=== PATIENT | female | born 1980 | race Caucasian/White ===

== ENCOUNTER → 2019-04-26 14:39 | Outpatient (CLI) | payer OTHER, SELFPAY ==
[2019-05-10 17:26] LABS: HPV HC, High Risk Negative (Negative)
[2019-05-14 14:32] LABS: HPV Reflexed? YES, CHARGE PATIENT
== END ==
PROVIDERS: Visit Provider Obstetrics & Gynecology
DX: Z12.4 Encounter for screening for malignant neoplasm of cervix (principal)
CPT/HCPCS: 87624; 88175; G0145

== ENCOUNTER → 2020-08-05 16:05 | Outpatient (CLI) | payer BC, SELFPAY ==
[2020-08-07 16:08] LABS: Endomysial Antibody IgA Negative (Negative)
[2020-08-07 16:33] LABS: Immunoglobulin A 93 mg/dL (87-352); t-Transglutaminase IgA <2 U/mL (0-3)
== END ==
PROVIDERS: PCP Family Medicine; Referring Provider Internal Medicine Gastroenterology; Visit Provider Internal Medicine Gastroenterology
DX: R19.7 Diarrhea, unspecified (principal)
CPT/HCPCS: 36415; 82784; 83516; 86140; 86255

== ENCOUNTER → 2021-02-05 08:43 | Outpatient (CLI) | payer OTHER, SELFPAY ==
[2020-11-06 15:25] VITALS: BMI 42.9
--- NOTE | 2021-02-05 08:45 | BI_ITS ---
MAMMOGRAPHY - BILATERAL SCREENING REASON FOR EXAM: Female, 40 years old. Routine annual screening examination. PERTINENT HISTORY: Non-contributory. TECHNIQUE: Digital bilateral breast zoe (3D mammographic acquisition) in the CC and MLO projections. 2-D mediolateral oblique (MLO) and craniocaudad (CC) views of both breasts were obtained. CAD: Full Field Digital Mammography with Computer Added Detection was performed. COMPARISON: None. Baseline examination. FINDINGS: Breast Composition: There are scattered areas of fibroglandular density. There are no dominant masses or suspicious calcifications. No other significant abnormalities are identified. BI/SCRN MAMM (CAD)W/ZOE BILAT IMPRESSION: Negative screening mammogram. Yearly followup mammogram recommended. (A) ASSESSMENT CATEGORY: BIRADS Category 1: Negative. A letter regarding these results will be sent to the patient by the facility within 30 days. Approximately 10% of breast cancers are not detected by mammography. A normal mammogram should not delay biopsy of a clinically suspicious abnormality. [id number] Electronically Signed: Murali Villalpando MD at 9:35 EDT , Service support ,
== END ==
PROVIDERS: PCP Family Medicine; Referring Provider Obstetrics & Gynecology; Visit Provider Obstetrics & Gynecology
DX: Z12.31 Encounter for screening mammogram for malignant neoplasm of breast (principal)
CPT/HCPCS: 77063; 77067

== ENCOUNTER → 2021-02-12 | Outpatient (CLI) | payer OTHER, SELFPAY | END | disposition home or self-care (01) | LOC: LABSPEC 14:34 | PROVIDERS: PCP Family Medicine; Referring Provider Physician Assistant; Visit Provider Physician Assistant | DX: L08.9 Local infection of the skin and subcutaneous tissue, unspecified (principal); N73.9 Female pelvic inflammatory disease, unspecified; Z22.322 Carrier or suspected carrier of Methicillin resistant Staphylococcus aureus | CPT/HCPCS: 87070; 87075; 87077; 87081; 87186; 87205 ==

== ENCOUNTER 2021-07-23 12:42 | Outpatient (CLI) | payer OTHER, SELFPAY ==
[2021-07-23] MEDS: 0.9% Saline Lock 10 ML Syringe IV (12:51)
[2021-07-23 12:53] VITALS: BP 136/79; PULSE 93; RESP 16; TEMP 37.2; O2SAT 98; BMI 39.4
[2021-07-23 13:42] VITALS: BP 127/85; PULSE 83; RESP 16; TEMP 36.5
[2021-07-23 14:45] VITALS: BP 122/74; PULSE 81; RESP 16; TEMP 36.6; O2SAT 97
== END 2021-07-23 14:42 | disposition home or self-care (01) ==
LOC: MS2OUT 12:42 → MS3 12:43
PROVIDERS: PCP Family Medicine; Referring Provider Nurse Practitioner Acute Care; Visit Provider Nurse Practitioner Acute Care
DX: Z23 Encounter for immunization (principal); U07.1 COVID-19
CPT/HCPCS: J7050; M0245; Q0245; A4216

== ENCOUNTER 2021-11-18 16:30 | Outpatient (CLI) | payer OTHER, SELFPAY ==
[2021-11-24 13:32] LABS: HPV APTIMA, High Risk Negative (Negative)
== END 2021-11-18 23:59 | disposition short-term general hospital (02) ==
LOC: LABSPEC 16:34
PROVIDERS: PCP Family Medicine; Referring Provider Obstetrics & Gynecology; Visit Provider Obstetrics & Gynecology
DX: Z12.4 Encounter for screening for malignant neoplasm of cervix (principal)
CPT/HCPCS: 87624; 88175; G0145

== ENCOUNTER 2021-11-24 14:23 | Outpatient (CLI) | payer OTHER, SELFPAY ==
[2021-11-24 15:18] LABS: Absolute Lymphocyte Count 4.01 X10^3/uL (0.83-4.51); Absolute Neutrophil Count 8.7 X10^3/uL (2.0-7.7); Basophil# 0.06 X10^3/uL; Basophil% 0.4 % (0-1); Eosinophil# 0.04 X10^3/uL; Eosinophils% 0.3 % (0-5); Hematocrit 45.2 % (37-47); Hemoglobin 15.1 g/dL (12.0-15.0); Lymphocyte # 4.01 X10^3/ul (0.83-4.51); Lymphocyte % 29.5 % (19-41); Mean Corp Hgb Conc 33.4 g/dL (32-36); Mean Corpuscular Hgb 29.4 pg (27.0-32.0); Mean Corpuscular Volume 87.9 fL (81-99); Mean Platelet Vol. 10.4 fl (6.2-12.0); Monocyte# 0.76 X10^3/uL; Monocyte% 5.6 % (0-10); NRBC Flagged by Analyzer 0 % (0-5); Neutrophil # 8.67 X10^3/uL (2.7-7.7); Neutrophil % 63.8 % (47-70); Platelet Count 338 K/mm3 (150-450); RBC Distribution Width CV 13.3 % (11.6-14.6); RBC Distribution Width SD 43.1 fl (35.1-43.9); Red Blood Count 5.14 M/mm3 (4.2-5.4); White Blood Count 13.6 K/mm3 (4.4-11.0)
[2021-11-24 15:46] LABS: Erythrocyte Sedimentation Rate 33 mm/hr (0-30)
[2021-11-24 16:04] LABS: ALB/GLOB Ratio 0.8 RATIO (0.9-2.4); AST(SGOT) 43 U/L (15-37); Alanine Aminotransfer ALT/SGPT 86 U/L (13-56); Albumin, Serum 3.5 g/dL (3.2-5.0); Alkaline Phosphatase 67 U/L (45-117); Anion Gap 6 (5-15); BUN 20 mg/dL (7-18); BUN/Creat Ratio 22.1 RATIO (10-20); CPK Total, Creatine Kinase 39 U/L (26-192); Calcium,Total 9.5 mg/dL (8.5-10.1); Chloride 103 mmol/L (98-107); EST Glomerular Filtration Rate 72 mL/min (>60); Est Glom Filt Rate - Afr Amer 88 mL/min (>60); Globulin 4.2 g/dL (2.2-4.2); Glucose 139 mg/dL (74-106); LDH 205 U/L (84-246); Potassium 3.7 mmol/L (3.5-5.1); Protein, Total 7.7 g/dL (6.4-8.2); Sodium Level 137 mmol/L (136-145)
[2021-11-24 22:24] LABS: Hemoglobin A1c 8.2 % (3.8-5.6)
[2021-11-28 07:07] LABS: Albumin 3.6 g/dL (2.9-4.4); Alpha-1-Globulins 0.3 g/dL (0.0-0.4); Alpha-2-Globulins 1.2 g/dL (0.4-1.0); Cytoplasmic Ab (C-ANCA) <1:20 titer (Neg:<1:20); Endomysial Antibody IgA Negative (Negative); Gamma Globulin 0.8 g/dL (0.4-1.8); Immunoglobulin A 121 mg/dL (87-352); Immunoglobulin G 641 mg/dL (586-1602); Immunoglobulin M 117 mg/dL (26-217)
[2021-11-28 17:59] LABS: Immunoglobulin E 30 IU/mL (6-495); Perinuclear Ab (P-ANCA) <1:20 titer (Neg:<1:20); t-Transglutaminase IgA <2 U/mL (0-3)
[2021-12-01 18:08] LABS: Anti-Centromere B Ab <0.2 AI (0.0-0.9); Anti-Chromatin <0.2 AI (0.0-0.9); Anti-Jo <0.2 AI (0.0-0.9); Anti-Scleroderma-70 AB <0.2 AI (0.0-0.9); Beef <0.10 kU/L (Class 0); Corn <0.10 kU/L (Class 0); Egg, Whole <0.10 kU/L (Class 0); Milk (Cow) <0.10 kU/L (Class 0); Peanut <0.10 kU/L (Class 0); Pork <0.10 kU/L (Class 0); RNP Ab <0.2 AI (0.0-0.9); SJOGREN'S Anti-SS-A test < 0.2 AI (0.0-0.9); SJOGREN'S Anti-SS-B test < 0.2 AI (0.0-0.9); Smith Ab <0.2 AI (0.0-0.9); Soybean <0.10 kU/L (Class 0); Wheat <0.10 kU/L (Class 0)
[2021-12-02 16:54] LABS: Anti-dsDNA Ab <1 IU/mL (0-9); Chocolate <0.10 kU/L (Class 0)
== END 2021-11-24 23:59 | disposition short-term general hospital (02) ==
LOC: LAB 14:24
PROVIDERS: PCP Family Medicine; Visit Provider Internal Medicine Gastroenterology
DX: R19.7 Diarrhea, unspecified (principal)
CPT/HCPCS: 36415; 80053; 82550; 82784; 82785; 83036; 83516; 83615; 84165; 85025; 85652; 86003; 86005; 86140; 86225; 86235; 86255; 86256; 86334

== ENCOUNTER 2021-11-25 16:15 | Outpatient (CLI) | payer OTHER, SELFPAY ==
[2021-11-25 17:41] LABS: Thyroid Stim Hormone (TSH) 2.19 uIU/mL (0.358-3.74)
[2021-11-27 21:44] LABS: Anti-Mitochondrial AB <20.0 Units (0.0-20.0)
[2021-11-28 07:07] LABS: Angiotensin Convert Enzyme 39 U/L (14-82); Ceruloplasmin 31.8 mg/dL (19.0-39.0); HEPATITIS B SURFACE AG Negative (Negative); Hepatitis A IgM Antibody Negative (Negative); Hepatitis B Core AB IgM Negative (Negative)
[2021-11-28 17:58] LABS: Anti-Smooth Muscle ABS 5 Units (0-19); Copper, Serum or Plasma 136 ug/dL (80-158); Hep C Antibodies <0.1 s/co ratio (0.0-0.9)
== END 2021-11-25 23:59 | disposition short-term general hospital (02) ==
LOC: LAB 16:17
PROVIDERS: PCP Family Medicine; Referring Provider Internal Medicine Gastroenterology; Visit Provider Internal Medicine Gastroenterology
DX: R74.01 Elevation of levels of liver transaminase levels (principal); R19.7 Diarrhea, unspecified
CPT/HCPCS: 36415; 80074; 82164; 82390; 82525; 83516; 84443

== ENCOUNTER 2021-12-02 07:57 | Outpatient (CLI) | payer OTHER, SELFPAY ==
--- NOTE | 2021-12-02 08:01 | US_ITS ---
STUDY: ABDOMINAL ULTRASOUND - RIGHT UPPER QUADRANT REASON FOR VISIT: Female, 41 years old elevated LFT''s TECHNIQUE: Ultrasound evaluation of the right upper quadrant was performed with real-time and static bassett-scale imaging. TECHNICAL QUALITY: Adequate. COMPARISON: None. FINDINGS: Liver: The liver is enlarged and measures 20 cm. There is increased echogenicity consistent with fatty infiltration. Focal fatty sparing is seen in the region of the gallbladder fossa. The bile ducts are within normal limits. There is hepatic color flow. The direction of portal flow is hepatopetal. There is no demonstrated mass lesion. Gallbladder: Normal distended gallbladder. The gallbladder wall measures 2.1 mm. There is a negative sonographic Jhaveri''s sign. There is no pericholecystic fluid. There are no gallstones. Common Bile Duct (C.B.D.): The common bile duct measures 3.6 mm. Pancreas: Normal size of the head, body and tail of the pancreas. There is normal echogenicity of the pancreas. There is no demonstrated pancreatic mass or cyst. Right Kidney: Normal size of the right kidney. The right kidney measures 11.6 cm x 5.8 cm x 4.1 cm. Normal renal cortex. The right cortex measures 1.5 cm. There is no demonstrated renal mass or cyst. There is no right hydronephrosis. US/Liver IMPRESSION: Hepatomegaly. Fatty infiltration of the liver. Electronically Signed: Murali Villalpando MD at 9:02 EST ,
--- NOTE | 2021-12-02 08:01 | US_ITS ---
STUDY: ABDOMINAL ULTRASOUND - ELASTOGRAPHY REASON FOR VISIT: Female, 41 years old. SIDHU TECHNIQUE: Liver stiffness measurements were obtained on a Next Gen Illumination RS 85 ultrasound machine using a CA 1-7 probe following the SRU guidelines. 3 measurements were obtained using a 2-D-SWE method. The IQR/M was 19% suggesting a quality data set. TECHNICAL QUALITY: Adequate. COMPARISON: None. FINDINGS: Liver: There is no demonstrated mass lesion. Median liver stiffness measured 5.8 kPa. US/Elastography Parenchyma/Organ IMPRESSION: Liver stiffness measures 5.8 kPa compatible with F2 Metavir score. Electronically Signed: Murali Villalpando MD at 9:01 EST ,
== END 2021-12-02 23:59 | disposition short-term general hospital (02) ==
LOC: US 07:59
PROVIDERS: PCP Family Medicine; Referring Provider Internal Medicine Gastroenterology; Visit Provider Internal Medicine Gastroenterology
DX: K75.81 Nonalcoholic steatohepatitis (NASH) (principal); R74.01 Elevation of levels of liver transaminase levels
CPT/HCPCS: 76705; 76981

== ENCOUNTER 2021-12-10 10:29 | Outpatient (CLI) | payer OTHER, SELFPAY ==
--- NOTE | 2021-12-10 10:31 | NM_ITS ---
CLINICAL: 41-year-old female with reported history of abdominal pain. SEMI-SOLID PHASE 99m Tc SULFUR COLLOID GASTRIC EMPTYING STUDY COMPARISON: None available FINDINGS: The patient was administered 1.0 mCi of 99m Tc sulfur colloid mixed with oatmeal and consumed per os. Image acquisitions in the anterior-posterior projections for a total of 60 minutes. There is prompt visualization of the stomach. There is no gastroesophageal reflux identified. First order kinetics are maintained throughout the duration of the acquisitions. The T ? linear fit was calculated to be 87.11 minutes, (Normal: 12-56 minutes). NM/Gastric Emptying Study IMPRESSION: 1. ABNORMAL 99m Tc sulfur colloid semi-solid phase (oatmeal) gastric emptying imaging examination. A. There is delayed semi-solid phase gastric emptying compared to normal controls with visualized first order kinetics throughout all components of the examination. (Deon et al, J Nucl Med Tech 38: 186, 2010). Electronically Signed: Tyree Barker DO at 20:35 EST ,
== END 2021-12-10 23:59 | disposition home or self-care (01) ==
LOC: NM 10:30
PROVIDERS: PCP Family Medicine; Referring Provider Internal Medicine Gastroenterology; Visit Provider Internal Medicine Gastroenterology
DX: R19.7 Diarrhea, unspecified (principal)
CPT/HCPCS: 78264; A9541

== ENCOUNTER 2022-01-28 06:44 | Outpatient (CLI) | payer OTHER, SELFPAY ==
[2022-01-28 07:52] LABS: Microalbumin,Random Urine 11.7 mg/L (NO RANGE EST.); Microalbumin:Creatinine Ratio 4.8 mg/g CRE (<30 mg/g CRE)
[2022-01-28 08:04] LABS: Cholesterol 225 mg/dL (200); Glucose 118 mg/dL (74-106); High Density Lipoprotein 60 mg/dL; Triglycerides 135 mg/dL; Very Low Density Lipoprotein 27 mg/dL (5-40)
== END 2022-01-28 23:59 | disposition home or self-care (01) ==
LOC: LAB 06:45
PROVIDERS: PCP Family Medicine; Referring Provider Family Medicine; Visit Provider Family Medicine
DX: E11.9 Type 2 diabetes mellitus without complications (principal)
CPT/HCPCS: 36415; 80061; 82043; 82570; 82947

== ENCOUNTER 2022-01-28 09:45 | Outpatient (RCR) | payer OTHER, SELFPAY | END 2022-01-29 23:59 | LOC: NS 09:45 | PROVIDERS: PCP Family Medicine; Referring Provider Internal Medicine Gastroenterology; Visit Provider Internal Medicine Gastroenterology | DX: Z71.3 Dietary counseling and surveillance (principal); E66.9 Obesity, unspecified; Z68.41 Body mass index [BMI] 40.0-44.9, adult | CPT/HCPCS: 97802; 97803 ==

== ENCOUNTER 2022-02-04 12:31 | Outpatient (CLI) | payer OTHER, SELFPAY ==
--- NOTE | 2022-02-04 12:33 | BI_ITS ---
MAMMOGRAPHY - BILATERAL SCREENING REASON FOR EXAM: Female, 41 years old. Routine annual screening examination. PERTINENT HISTORY: Non-contributory. TECHNIQUE: Digital bilateral breast zoe (3D mammographic acquisition) in the CC and MLO projections. 2-D mediolateral oblique (MLO) and craniocaudad (CC) views of both breasts were obtained. CAD: Full Field Digital Mammography with Computer Added Detection was performed. COMPARISON: Comparison is made with prior study dated 02/05/2021. FINDINGS: Breast Composition: There are scattered areas of fibroglandular density. There are no dominant masses or suspicious calcifications. No other significant abnormalities are identified. There has been no significant change since the prior study. BI/SCRN MAMM (CAD)W/ZOE BILAT IMPRESSION: Stable bilateral screening mammogram. Yearly follow-up mammogram recommended. (A) ASSESSMENT CATEGORY: BIRADS Category 1: Negative. A letter regarding these results will be sent to the patient by the facility within 30 days. Approximately 10% of breast cancers are not detected by mammography. A normal mammogram should not delay biopsy of a clinically suspicious abnormality. [id number] Electronically Signed: Murali Villalpando MD at 13:26 EDT ,
== END 2022-02-04 23:59 | disposition home or self-care (01) ==
LOC: OPBI 12:31
PROVIDERS: PCP Family Medicine; Visit Provider Obstetrics & Gynecology
DX: Z12.31 Encounter for screening mammogram for malignant neoplasm of breast (principal)
CPT/HCPCS: 77063; 77067

== ENCOUNTER 2022-02-18 16:31 | Outpatient (RCR) | payer OTHER, SELFPAY | END 2022-02-28 23:59 | LOC: NS 16:31 | PROVIDERS: PCP Family Medicine; Referring Provider Internal Medicine Gastroenterology; Visit Provider Internal Medicine Gastroenterology | DX: Z71.3 Dietary counseling and surveillance (principal); E66.9 Obesity, unspecified | CPT/HCPCS: 97803 ==

== ENCOUNTER 2022-03-18 16:11 | Outpatient (RCR) | payer OTHER, SELFPAY | END 2022-03-31 23:59 | LOC: NS 16:11 | PROVIDERS: PCP Family Medicine; Referring Provider Internal Medicine Gastroenterology; Visit Provider Internal Medicine Gastroenterology | DX: Z71.3 Dietary counseling and surveillance (principal); E66.9 Obesity, unspecified; Z68.39 Body mass index [BMI] 39.0-39.9, adult | CPT/HCPCS: 97803 ==

== ENCOUNTER 2022-04-22 16:26 | Outpatient (RCR) | payer OTHER, SELFPAY | END 2022-04-30 23:59 | LOC: NS 16:26 | PROVIDERS: PCP Family Medicine; Referring Provider Internal Medicine Gastroenterology; Visit Provider Internal Medicine Gastroenterology | DX: Z71.3 Dietary counseling and surveillance (principal); E66.9 Obesity, unspecified; Z68.38 Body mass index [BMI] 38.0-38.9, adult | CPT/HCPCS: 97803 ==

== ENCOUNTER 2022-05-13 16:23 | Outpatient (RCR) | payer OTHER, SELFPAY | END 2022-05-31 23:59 | LOC: NS 16:23 | PROVIDERS: PCP Family Medicine; Referring Provider Internal Medicine Gastroenterology; Visit Provider Internal Medicine Gastroenterology | DX: Z71.3 Dietary counseling and surveillance (principal); E66.9 Obesity, unspecified; Z68.39 Body mass index [BMI] 39.0-39.9, adult | CPT/HCPCS: 97803 ==

== ENCOUNTER → 2022-06-09 | Outpatient (CLI) | payer OTHER, SELFPAY ==
[2022-06-09 07:24] LABS: ALB/GLOB Ratio 0.9 RATIO (0.9-2.4); AST(SGOT) 16 U/L (15-37); Alanine Aminotransfer ALT/SGPT 23 U/L (13-56); Albumin, Serum 3.3 g/dL (3.2-5.0); Alkaline Phosphatase 49 U/L (45-117); Anion Gap 5 (5-15); BUN 16 mg/dL (7-18); BUN/Creat Ratio 18.3 RATIO (10-20); Calcium,Total 8.8 mg/dL (8.5-10.1); Chloride 106 mmol/L (98-107); Cholesterol 227 mg/dL (200); Creatinine, Serum 0.87 mg/dL (0.55-1.02); EST Glomerular Filtration Rate 75 mL/min (>60); Est Glom Filt Rate - Afr Amer 91 mL/min (>60); Globulin 3.6 g/dL (2.2-4.2); Glucose 107 mg/dL (74-106); High Density Lipoprotein 55 mg/dL; Potassium 3.9 mmol/L (3.5-5.1); Protein, Total 6.9 g/dL (6.4-8.2); Sodium Level 141 mmol/L (136-145); Triglycerides 132 mg/dL; Very Low Density Lipoprotein 26 mg/dL (5-40)
[2022-06-09 07:34] LABS: Hemoglobin A1c 6.4 % (3.8-5.6)
== END | disposition home or self-care (01) ==
LOC: LAB 06:15
PROVIDERS: PCP Family Medicine; Visit Provider Family Medicine
DX: E11.9 Type 2 diabetes mellitus without complications (principal)
CPT/HCPCS: 36415; 80053; 80061; 83036

== ENCOUNTER 2022-06-15 16:23 | Outpatient (RCR) | payer OTHER, SELFPAY | END 2022-07-01 23:59 | LOC: NS 16:23 | PROVIDERS: PCP Family Medicine; Referring Provider Internal Medicine Gastroenterology; Visit Provider Internal Medicine Gastroenterology | DX: Z71.3 Dietary counseling and surveillance (principal); E66.9 Obesity, unspecified; Z68.39 Body mass index [BMI] 39.0-39.9, adult | CPT/HCPCS: 97803 ==

== ENCOUNTER 2022-07-28 16:36 | Outpatient (RCR) | payer OTHER, SELFPAY | END 2022-07-31 23:59 | LOC: NS 16:36 | PROVIDERS: PCP Family Medicine; Referring Provider Internal Medicine Gastroenterology; Visit Provider Internal Medicine Gastroenterology | DX: Z71.3 Dietary counseling and surveillance (principal); E66.9 Obesity, unspecified; Z68.39 Body mass index [BMI] 39.0-39.9, adult | CPT/HCPCS: 97803 ==

== ENCOUNTER 2022-08-26 16:31 | Outpatient (RCR) | payer OTHER, SELFPAY | END 2022-08-31 23:59 | LOC: NS 16:31 | PROVIDERS: PCP Family Medicine; Referring Provider Internal Medicine Gastroenterology; Visit Provider Internal Medicine Gastroenterology | DX: Z71.3 Dietary counseling and surveillance (principal); E66.9 Obesity, unspecified; Z68.39 Body mass index [BMI] 39.0-39.9, adult | CPT/HCPCS: 97803 ==

== ENCOUNTER 2022-09-21 16:29 | Outpatient (RCR) | payer OTHER, SELFPAY | END 2022-09-30 23:59 | LOC: NS 16:29 | PROVIDERS: PCP Family Medicine; Referring Provider Internal Medicine Gastroenterology; Visit Provider Internal Medicine Gastroenterology | DX: Z71.3 Dietary counseling and surveillance (principal); E66.9 Obesity, unspecified; Z68.39 Body mass index [BMI] 39.0-39.9, adult | CPT/HCPCS: 97803 ==

== ENCOUNTER → 2022-12-28 | Outpatient (CLI) | payer OTHER, SELFPAY ==
[2022-12-28 17:26] LABS: Microalbumin,Random Urine 5.4 mg/L (NO RANGE EST.); Microalbumin:Creatinine Ratio 6.7 mg/g CRE (<30 mg/g CRE)
[2022-12-28 18:09] LABS: AST(SGOT) 15 U/L (15-37); Alanine Aminotransfer ALT/SGPT 25 U/L (13-56); Albumin, Serum 3.7 g/dL (3.2-5.0); Alkaline Phosphatase 50 U/L (45-117); Anion Gap 7 (5-15); BUN 19 mg/dL (7-18); BUN/Creat Ratio 23.7 RATIO (10-20); Calcium,Total 9.1 mg/dL (8.5-10.1); Chloride 105 mmol/L (98-107); Cholesterol 183 mg/dL (200); EST Glomerular Filtration Rate 83 mL/min (>60); Est Glom Filt Rate - Afr Amer 100 mL/min (>60); Globulin 3.6 g/dL (2.2-4.2); Glucose 94 mg/dL (74-106); High Density Lipoprotein 74 mg/dL; Potassium 3.7 mmol/L (3.5-5.1); Protein, Total 7.3 g/dL (6.4-8.2); Sodium Level 140 mmol/L (136-145); Triglycerides 81 mg/dL; Very Low Density Lipoprotein 16 mg/dL (5-40)
== END | disposition home or self-care (01) ==
LOC: LAB 16:21
PROVIDERS: PCP Family Medicine; Referring Provider Family Medicine; Visit Provider Family Medicine
DX: E11.9 Type 2 diabetes mellitus without complications (principal)
CPT/HCPCS: 36415; 80053; 80061; 82043; 82570; 83036

== ENCOUNTER → 2023-01-04 | Outpatient (CLI) | payer OTHER, SELFPAY ==
--- NOTE | 2023-01-04 15:45 | RAD_ITS ---
STUDY: X-RAY - PELVIS AND BILATERAL HIPS REASON FOR EXAM: Female, 42 years old. Pain. TECHNIQUE: AP view of the pelvis.? 2 views of the right hip, and 2 views of the left hip were obtained. COMPARISON: None. FINDINGS: There is a non-specific bowel gas pattern. Normal visualized soft tissue structures. !!! Mild arthrosis of both sacroiliac joints. Normal bilateral superior and inferior pubic rami. Mild arthrosis of the symphysis pubis. Normal bilateral ischial tuberosities. Moderate arthrosis of both hips with osteophytes. RAD/Hips B/L min 2 views w/ Pelvis IMPRESSION: Mild arthrosis at the symphysis pubis and bilateral sacroiliac joints. Moderate arthrosis of both hips. Electronically Signed: Matthieu Song, at 13:06 EST ,
[2023-01-04 17:39] LABS: Estradiol 143.4 pg/mL; Follicle Stimulating Hormone 5.6 mIU/mL; Thyroid Stim Hormone (TSH) 2.36 uIU/mL (0.358-3.74)
[2023-01-04 17:41] LABS: Progesterone Level 0.26 ng/mL (See Comment)
[2023-01-06 15:15] LABS: Sex Hormone-binding Globulin 78.3 nmol/L (24.6-122.0)
== END | disposition home or self-care (01) ==
LOC: LAB 15:34
PROVIDERS: PCP Family Medicine; Visit Provider Family Medicine
DX: N95.1 Menopausal and female climacteric states (principal); M76.31 Iliotibial band syndrome, right leg; M76.32 Iliotibial band syndrome, left leg
CPT/HCPCS: 36415; 73521; 82670; 83001; 84144; 84270; 84403; 84443

== ENCOUNTER 2023-01-14 06:42 | Day surgery (SDC) | payer OTHER, SELFPAY ==
--- NOTE | 2023-01-06 12:50 | PCM.HP.BLA ---
History and Physical History and Physical [facility] Patient Name: Marjan Garcia : 1980 From:? JAIRO TSANG PA-C? DATE OF SURGERY:? 01/14/2023 SCHEDULED PROCEDURE:? Endoscopic bilateral carpal tunnel release with possible open HISTORY OF PRESENT ILLNESS: Preoperative history and physical exam was performed on January 06, 2023.? This is a 42-year-old female who is been having ongoing numbness and tingling for the past 1-1/2 years.? There is never been any trauma or injury.? She denies any current neck pain.? Numbness and tingling is associated in bilateral thumbs, index fingers, middle fingers and medial aspect of both ring fingers.? Pain does occasionally awaken her at nighttime.? Patient is right-hand dominant.? She does report numbness and tingling has been significantly affecting her activities of daily living and work duties.? She denies any recent fevers, chills, recent infections.? She has underlying type 2 diabetes mellitus.? She currently denies chest pain, shortness of breath.? After failing conservative measures and discussing treatment options with Dr. Abdiel Bernard, the patient does wish to proceed with a bilateral endoscopic carpal tunnel release with possible open. REVIEW OF SYSTEMS: ROS: Const: Denies change in appetite, fever and weight change. CV: Denies chest pain, heart murmur and irregular heartbeat. Resp: Denies cough, pneumonia, shortness of breath, tuberculosis and wheezing. GI: Denies constipation, diarrhea, heartburn, nausea, rectal itching, bloody stools and vomiting. : Denies incontinence. Musculo: Denies leg swelling, pain, trouble walking and weakness. Skin: Denies Raynaud's, history of shingles and tattoo. Neuro: Reports numbness/tingling but denies ambulatory dysfunction, dizziness and tremor. Psych: Denies anxiety, insomnia and stress. Giovani/Lymph: Denies anemia, bleeding/bruising tendency and past transfusion. Reviewed and updated. PAST MEDICAL HISTORY: Advance Care Plan: No Advance Directives Effective Date: 03/17/2021 PMH: Medical Problems: Diabetes Accidents: None Surgical Hx: Section - 2002, 2004, 2006 Tubal Ligation - 2006 [place] - (2000) ? Anesthesia Complications: None Assistive Devices: None Reviewed and updated. 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 Personal Habits:? Cigarette Use: Never Smoked Cigarettes.Smokeless Tobacco: Never Used Smokeless Tobacco.E-Cigarette Use: Never used.Alcohol: Occasionally.Drug Use: Denies Use.Enjoy Exercising: Exercises 1-3 X/Week. Reviewed, no changes. VITALS: Ht: 64.2 Wt: 228lb Wt k.421 BMI: 38.9 BP: 122/68 Pulse: 83 Resp: 18 T: 97.6 T: 36.4C Pain Level: 0 O2SatR: 100 ALLERGIES: No Known Drug Allergy? MEDICATIONS: Vitamin C? once daily, Vitamin D3 Super Strength 50 mcg (2000 Ut) two tabs daily PO, Multivitamin? take one(1) tablet daily., Rosuvastatin Calcium 5 mg 1 by mouth every day, Actos 15 mg one tab PO bid, [place] 3 1000 mg two tabs one daily PO, Vitamin E 180 MG (400 Unit) three tabs once daily PO PRE-OP EXAM:? General appearance:NORMAL? ? ? Other: Eyes: Conjunctivae and lids: NORMAL? Pupils: ERR Ears, Nose, Mouth, and Throat: NORMAL? Other: Inspection of lips, teeth and gums: NORMAL? ?Other: Neck: Examination of neck: no masses noted. Respiratory: Assessment of respiratory effort: NORMAL? ?Other: ?Auscultation of lungs: clear to auscultation no wheezes, rhonchi or rales. Cardiovascular:? Auscultation of heart: regular rate and rhythm, no murmurs, gallops or rubs. PHYSICAL EXAMINATION: On exam of bilateral hands they are without erythema or signs of infection.? No atrophy appreciated.? Patient has full composite fist full extension of fingers.? She has positive carpal compression exam bilaterally, positive Phalen's bilaterally, positive Tinel's at the wrist bilaterally.? Sensation intact to light touch axillary, Radial, median, ulnar nerve distribution however diminished in the median nerve distribution. IMAGING STUDIES: Previous x-rays of bilateral wrist revealed no acute findings for fracture or dislocation with no degenerative changes. IMPRESSION: 1.? Bilateral carpal tunnel syndrome 2.? Type 2 diabetes mellitus PLAN: Dr. Abdiel Bernard did discuss and review with the patient all treatment options including surgical versus nonsurgical options.? Patient does wish to proceed with the above-stated procedure.? Potential risks, benefits, and complications of the procedure were discussed in detail including but not limited to , infection, nerve and blood vessel damage, persistent pain, numbness, tingling, paresthesias, blood clot, pulmonary embolism, and requirement for possible further surgery.? The patient expressed full understanding and has no further questions for the doctor.? Patient does agree to proceed with the above-stated procedure and has signed the surgery consent form. This dictation was created using voice recognition software. Phonetic and/or grammatical errors may exist. ___? I have re-examined the patient.? There are no clinical changes since date of exam. ___? See progress notes for changes. ___? Dictated on admission Date: ? ? ?Time: Signature:
[2023-01-14] VITALS (7 sets, daily range): BP systolic 105–115; BP diastolic 57–70; PULSE 62–85; RESP 16; TEMP 36.2–37; O2SAT 94–100; BMI 38.3
[2023-01-14] MEDS: Lactated Ringers 1,000 ML 15 ML IV (07:33)
[2023-01-14] MEDS: Cefazolin 2 GM in 0.9% Normal Saline 100 ML IV (08:02)
[2023-01-14] MEDS: Ropivacaine 0.5% 30 ML Vial (08:24)
[2023-01-14 08:25] LABS: Bedside Glucose 102 mg/dL (74-106)
--- NOTE | 2023-01-14 09:02 | PCM.OPRPT ---
Report of Operation Date of Procedure: 01/14/23 Description of Surgical Findings:: Preoperative diagnosis: Bilateral carpal Tunnel Syndrome Postoperative diagnosis: Bilateral carpal Tunnel Syndrome Procedure: Bilateral endoscopic Carpal Tunnel Release Surgeon: Robin Bernard DO Anesthesia: General with LMA Pest Locator: Karen Mansfield CRNA Complications: None apparent Drains: None Estimated blood loss: 2 cc Urinary output: None measured IV fluids: Per anesthesia record Specimens: None Surgical implants: None Surgical indications: This is a 42 female seen in the outpatient setting diagnosed with bilateral carpal tunnel syndrome. The patient failed nonoperative management in the form of bracing, anti-inflammatory medications, activity modification. Operative intervention in form of endoscopic possible open carpal tunnel release was offered to bilateral hands. The risks, benefits, alternatives to procedure were reviewed with patient at length in the outpatient setting and he agreed to proceed. Risks included but were not limited to bleeding, infection, loss of life or limb, risk of anesthesia, incomplete release, neurovascular injury, persistent pain, need for additional surgery, stiffness, loss of hand function. Patient expressed understanding wish to proceed with surgery. Informed consent obtained in the office. Description of procedure: Patient was seen in preoperative holding area. Patient was identified by name, medical record number, date of . The operative extremities were marked with a surgical marker. We confirmed informed consent with the patient and all questions were answered to the patient's satisfaction. At time of her procedure, patient was brought to the operative suite and positioned supine a standard operating table. All bony prominences were well-padded. General anesthesia was induced and endotracheal tube placed. Bilateral upper extremities were then prepped for surgery by first applying a well-padded pneumatic tourniquet to the upper arms. We spun the bed approximately 45 degrees. 2 g Ancef was administered prior to incision by anesthesia staff. We performed a timeout at this point confirming side, site, and operation to be performed. No concerns voiced and elected to proceed. I began surgery on the right side, as this was the more symptomatic side. I first marked a transverse incision between the FCR and FCU tendons as the patient did not have a palmaris longus tendon In the proximal wrist crease approximately 1-1/2 cm in length. Skin was sharply incised with 15 blade scalpel. Superficial veins were cauterized with bipolar cautery. The fatty layer was dissected through bluntly until the antebrachial fascia was encountered. The antebrachial fascia were split in line with the fibers as well as the incision with the Littler scissors. I then placed a skin hook around the antebrachial fascia distally. I open the approximately 1 cm longitudinally of the antebrachial fascia. I then sequentially dilated within the carpal tunnel utilizing Arthrex supplied dilators. I then utilized there synovial elevator to debride the undersurface of the transverse carpal ligament free from synovium. I then removed the elevator and inserted the centerline endoscopic carpal tunnel release system. The transverse carpal ligament was well visualized and free from underlying synovium. I identified its distal aspect by ballottement of the skin and perivascular fat was visualized. I then carefully deployed the scalpel from the sheath and, in retrograde fashion, sequentially released the transverse carpal ligament longitudinally. No aberrancies of the median nerve were apparent. Complete release was confirmed with Littler scissors acting as a probe. The tourniquet was then deflated. Hemostasis was excellent. A field block was administered with 10 cc 0.5% plain ropivacaine. Skin was closed with a single horizontal mattress suture of 4-0 nylon suture. Sterile compression dressing was then applied. I then turned my attention to the left side. I first marked a transverse incision between the FCR and FCU tendons as the patient did not have a palmaris longus tendon In the proximal wrist crease approximately 1-1/2 cm in lengthSkin was sharply incised with 15 blade scalpel. Superficial veins were cauterized with bipolar cautery. The fatty layer was dissected through bluntly. Muscle belly was encountered which appeared to be an anomalous muscle, likely a palmaris longus variant. I cauterized the muscle belly through our dissection tract. This then identified the antebrachial fascia was encountered. The antebrachial fascia were split in line with the fibers as well as the incision with the Littler scissors. I then placed a skin hook around the antebrachial fascia distally. I opened the proximal 1 cm longitudinally of the antebrachial fascia. I then sequentially dilated within the carpal tunnel utilizing Arthrex supplied dilators. I then utilized there synovial elevator to debride the undersurface of the transverse carpal ligament free from synovium. I then removed the elevator and inserted the centerline endoscopic carpal tunnel release system. The transverse carpal ligament was well visualized and free from underlying synovium. I identified its distal aspect by blotting the skin and perivascular fat was visualized. I then carefully deployed the scalpel from the sheath and, in retrograde fashion, sequentially released the transverse carpal ligament longitudinally. No aberrancies of the median nerve were apparent. Complete release was confirmed with Littler scissors acting as a probe. The tourniquet was then deflated. Hemostasis was excellent. A field block was administered with 10 cc 0.5% plain ropivacaine. Skin was closed with interrupted horizontal mattress sutures of 4-0 nylon suture. Sterile compression dressing was then applied. Patient tolerated procedure well without apparent complication.she was safely extubated in the operative suite. She was transferred to PACU in stable condition. Post Operative Plan: Weightbearing: Weightbearing as tolerated bilateral upper extremities Antibiotics: Ancef 2 g x 1 dose preoperatively DVT Prophylaxis: None indicated Green: None Dressing: Okay to remove on postoperative day #2, shower. Apply Band-Aid X-Rays: None Pain Medication: [place] rx sent Follow-up: 2 weeks post-operatively with me in the office
--- NOTE | 2023-01-14 09:10 | PCM.DC ---
Discharge Instructions Follow Up Care Test Results: Test results from this visit will be discussed in further detail at your follow-up appointment, if applicable. Discharge Plan Admission Attending Provider: Robin Bernard Primary Care Provider: Skylar Roman Discharge Orders/Prescriptions Prescriptions: No Action multivitamin Tablet 1 tab PO DAILY cholecalciferol (vitamin D3) 50 mcg (2,000 unit) capsule 50 mcg PO DAILY ascorbic acid (vitamin C) [Vitamin C] 500 mg Tablet 1,000 mg PO DAILY vitamin E 800 unit Capsule 800 unit PO DAILY [place] 3 Natural Fish Oil Conc Capsule 2,000 mg PO DAILY rosuvastatin 5 mg tablet 5 mg PO QHS Label Comments: TAKE 1 TABLET BY MOUTHCONCE DAILY AT BEDTIME pioglitazone 30 mg tablet See Rx Instructions .ROUTE .COMPLEX Qty: 30 2RF Dose Instruction: TAKE 1 TABLET BY MOUTH ONCE DAILY Rx Instructions: TAKE 1 TABLET BY MOUTH ONCE DAILY Referrals / Follow Up: Skylar Roman MD [Primary Care Provider] - Disposition Disposition (needs filled in before D/C Order can be placed): Home, Self Care
== END 2023-01-14 10:39 | disposition home or self-care (01) ==
LOC: SDC 06:44 → AC 06:44
PROVIDERS: PCP Family Medicine; Referring Provider Student in an Organized Health Care Education/Training Program; Visit Provider Student in an Organized Health Care Education/Training Program
PROC: (CPT 29848; principal; 2023-01-14 08:05)
DX: G56.03 Carpal tunnel syndrome, bilateral upper limbs (principal); E11.9 Type 2 diabetes mellitus without complications; E78.00 Pure hypercholesterolemia, unspecified; E66.9 Obesity, unspecified; Z79.84 Long term (current) use of oral hypoglycemic drugs; Z79.899 Other long term (current) drug therapy
CPT/HCPCS: 29848; 01810; 82962; J7120; J2405

== ENCOUNTER → 2023-02-12 | Outpatient (CLI) | payer OTHER, SELFPAY ==
--- NOTE | 2023-02-12 08:05 | US_ITS ---
STUDY: ABDOMINAL ULTRASOUND - ELASTOGRAPHY REASON FOR VISIT: Female, 42 years old. Abnormal liver enzymes. TECHNIQUE: Liver stiffness measurements were obtained on a [employer] RS 85 ultrasound machine using a CA 1-7 probe following the SRU guidelines. 3 measurements were obtained using a 2-D-SWE method. TheIQR/M was 23% suggesting a quality data set. TECHNICAL QUALITY: Adequate. COMPARISON: Comparison is made with prior study done earlier today. FINDINGS: Liver: Hepatomegaly. Fatty infiltration of the liver. Median liver stiffness measured 10.3 kPa. Abdomen: There is no demonstrated mass lesion. US/ABD Limited w/ Elastography IMPRESSION: Liver stiffness measures 10.3 kPa compatible with F2-F3 (Mild to moderate liver fibrosis) Metavir score. Electronically Signed: Murali Villalpando MD at 12:35 EDT ,
--- NOTE | 2023-02-12 09:03 | BI_ITS ---
MAMMOGRAPHY - BILATERAL SCREENING 3-D TOMOSYNTHESIS REASON FOR EXAM: Female, 42 years old. Routine screening PERTINENT HISTORY: No significant family history. TECHNIQUE: 2-D mammograms and 3-D Tomosynthesis of the breast (s) were performed. CAD was performed. COMPARISON: 02/04/2022 FINDINGS: The breast composition is composed of scattered fibroglandular density. Scattered benign calcifications are seen. No dense spiculated masses or suspicious microcalcifications are identified. No architectural distortion is identified. There is no skin thickening or retraction. There has been no significant change since the prior study. BI/SCRN MAMM (CAD)W/ZOE BILAT IMPRESSION: No mammographic signs of malignancy. Routine yearly mammograms recommended. ASSESSMENT CATEGORY: BIRADS Category 1: Negative. A letter regarding these results will be sent to the patient by the facility within 30 days. FOLLOW UP RECOMMENDATION: Yearly follow up mammogram recommended. (A) Approximately 10% of breast cancers are not detected by mammography. A normal mammogram should not delay biopsy of a clinically suspicious abnormality. Electronically Signed: Erik Adler MD at 10:20 EDT ,
== END | disposition home or self-care (01) ==
LOC: US 08:00
PROVIDERS: PCP Family Medicine; Referring Provider Internal Medicine Gastroenterology; Visit Provider Internal Medicine Gastroenterology
DX: Z12.31 Encounter for screening mammogram for malignant neoplasm of breast (principal)
CPT/HCPCS: 76705; 76981; 77063; 77067

== ENCOUNTER → 2023-03-08 | Outpatient (CLI) | payer OTHER, SELFPAY ==
--- NOTE | 2023-03-08 07:45 | US_ITS ---
STUDY: ABDOMINAL ULTRASOUND - ELASTOGRAPHY REASON FOR VISIT: Female, 43 years old. SIDHU TECHNIQUE: Liver stiffness measurements were obtained on a [employer] RS 85 ultrasound machine using a CA 1-7 probe following the SRU guidelines. 3 measurements were obtained using a 2-D-SWE method. TheIQR/M was 27 % suggesting a quality data set. TECHNICAL QUALITY: Adequate. COMPARISON: Comparison is made with prior study dated December 02, 2021 FINDINGS: Liver: There is no demonstrated mass lesion. Median liver stiffness measured 8.8 kPa. Abdomen: There is no demonstrated mass lesion. US/Elastography Parenchyma/Organ IMPRESSION: Liver stiffness measures 8.8 kPa compatible with F2-F3 (Mild to moderate liver fibrosis) Metavir score. Electronically Signed: Murali Villalpando MD at 12:52 EDT ,
== END | disposition home or self-care (01) ==
LOC: US 07:42
PROVIDERS: PCP Family Medicine; Referring Provider Internal Medicine Gastroenterology; Visit Provider Internal Medicine Gastroenterology
DX: K75.81 Nonalcoholic steatohepatitis (NASH) (principal)
CPT/HCPCS: 76981

== ENCOUNTER → 2023-03-12 | Outpatient (CLI) | payer OTHER, SELFPAY ==
[2023-03-21 11:07] LABS: HPV APTIMA, High Risk Negative (Negative)
== END | disposition home or self-care (01) ==
LOC: US 14:12
PROVIDERS: PCP Family Medicine; Visit Provider Obstetrics & Gynecology
DX: Z12.4 Encounter for screening for malignant neoplasm of cervix (principal)
CPT/HCPCS: 87624; 88175; G0145

== ENCOUNTER → 2023-03-25 | Outpatient (CLI) | payer OTHER, SELFPAY ==
--- NOTE | 2023-03-25 16:12 | US_ITS ---
STUDY: ULTRASOUND OF THE FEMALE PELVIS - COMPLETE REASON FOR EXAM: Female, 43 years old. abnormal uterine bleeding LMP: 03/23/2023 TECHNIQUE: Transabdominal and Transvaginal TECHNICAL QUALITY: Adequate. COMPARISON: None. FINDINGS: The uterus is anteverted and is in a midline position. The uterus measures 9.6 x 6.5 x 4.2 cm. Normal uterine cervix. The endometrium measures 10 mm in thickness, and is hyperechoic. There is no demonstrated endometrial mass. 2 separate uterine fibroids, larger measures 1.2 cm I.U.D. - The patient does not have an I.U.D. The right ovary is visualized. The right ovary measures 4.3 x 2.6 x 2.1 cm. There is no right ovarian cyst or ovarian mass. There is no visualized right adnexal mass or complex lesion. There is normal arterial and normal venous vascularity. The left ovary is visualized. The left ovary measures 4.8 x 4.2 x 3.2 cm. There is a complex 2.3 x 2.9 x 2.7 cm cyst.. There is normal arterial and normal venous vascularity. There is minimal fluid in the cul-de-sac. The bladder is sonographically normal US/Pelvic w/ Transvaginal IMPRESSION: Complex 2.3 x 2.9 x 2.7 cm left adnexal cyst, follow-up ultrasound in 4-6 weeks recommended to assess stability or resolution Small uterine fibroids Minimal free fluid in the cul-de-sac is likely physiologic Electronically Signed: Erik Adler MD at 21:16 EDT ,
== END | disposition home or self-care (01) ==
LOC: US 16:11
PROVIDERS: PCP Family Medicine; Referring Provider Obstetrics & Gynecology; Visit Provider Obstetrics & Gynecology
DX: N93.9 Abnormal uterine and vaginal bleeding, unspecified (principal)
CPT/HCPCS: 76830; 76856

== ENCOUNTER 2023-03-31 17:00 | Outpatient (RCR) | payer OTHER, SELFPAY ==
--- NOTE | 2023-01-14 07:43 | HP.PTEVAL ---
Patient's Visit Information ARA URRUTIA is a 42 year old F referred to Physical Therapy by Dr. Skylar Roman MD with a diagnosis of B IT band syndrome. Date of Evaluation: 01/13/23 Physical Therapist: Chucky Levy DPT - Visit Plan Frequency: 2x /Week Duration: 4 Weeks Plan: Start with pigeon stretch, lunge with hip ER stretching, TFL stretching. Add in glute med and max strengthening in non painful movements - Subjective Pt. is here today for her initial evaluation with diagnosis of B It band syndrome. Pt. reports having pain for ~1.5 years. No mech of injury. Pt. reports having increased pain with prolonged standing, walking, but also has pain with some of her exercises at the gym including: leg press and hip abduction exercises. She reports no issues with the elliptical. Pt. did have xrays showing some mild-moderate arthrosis of B hips. Her pain tends to be more lateral near greater trochanter. Pt. has done some stretching and has done foam rolling, both with minimal change in her symptoms. She reports having some pain also with lying in her sides, but not as much. Pt. denies N/T, but does have some chronic low back pain as well. 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 Pt. reports having increased stiffness in morning as well. Pt. is hopeful to reduce symptoms in order to tolerate all of her exercise and work routine. - Pain R hip Pain Intensity (Out of 10): 4 Pain Intensity Range: 3, 8 L hip Pain Intensity (Out of 10): 3 Pain Intensity Range: 2, 8 - Objective POSTURE: Pt. has fairly decent posture in stance. No major lateral shift noted. Slight anterior pelvic tilt noted. PALPATION: Pt. has no pain at B hip flexors, her pain is mostly over B greater trochanters. Pt. has some pain along IT band inferior to greater trochanters, but not as much. NEURO: normal bilaterally. ROM: L hip: flexion 110deg mild increase NW, abd 45deg NE, ER 60deg mild increase nW, IR 35deg mild groin pain. R hip: flexion 120deg mild increase NW, abd 45deg NE, ER 60deg mild increase NW, IR 35deg mild increase groin pain. Pt. has pretty good HS length bilaterally. Pt. has mild tightness in B hip flexors, tightness noted in B IT bands. + obers test for tightness. LUMBAR SPINE: flexion min loss NE, ext min loss tightness reported, SB min loss NE, rotation nil loss NE bilat. MMT: Pt. has good strength throughout BLEs, 5/5 throughout, except hip abd 5-/5, hip ext 5-/5, core strength fair-. GAIT: Pt. has increase in lateral hip sway, but no Trendelenburg pattern noted. STAIRS: fairly normal. - Special Tests L/S Slump test left side: Negative L/S Slump test right side: Negative L/S Left Straight Leg Raise: Negative L/S Right Straight Leg Raise: Negative Lumbar Standing: Flexion - Mechanical Response: No effect Lumbar Standing: Flexion - Symptoms During Testing: Produces Lumbar Standing: Flexion - Symptoms After Testing: No effect Lumbar Standing: Extension - Mechanical Response: No effect Lumbar Standing: Extension - Symptoms During Testing: No effect Lumbar Standing: Extension - Symptoms After Testing: No effect Lumbar Standing: Right Side Glides - Mechanical Response: No effect Lumbar Standing: Right Side [place] - Symptoms During Testing: No effect Lumbar Standing: Right Side [place] - Symptoms After Testing: No effect Lumbar Standing: Left Side [place] - Mechanical Response: No effect Lumbar Standing: Left Side [place] - Symptoms During Testing: No effect Lumbar Standing: Left Side [place] - Symptoms After Testing: No effect R Hip Scour: Negative R Hip HILARIA - Intraarticular Pathology: Negative R Hip FADDIR - Labrum: Negative R Hip Leslie - IT Band: Positive Comment: obers + for tightness L Hip Scour: Negative L Hip HILARIA - Intraarticular Pathology: Negative L Hip FADDIR - Labrum: Negative L Hip Leslie - IT Band: Positive Comment: obers + for tightness - Balance/Special Test Scores Lower Extremity Functional Score: 64 - Goals Goal 1:: LTG: Pt. to be I with HEP. Goal Time Frame: 4-6 Weeks Goal 2:: STG: Pt. to sleep throughout the night without increase in symptoms. Goal Time Frame: 2-4 Weeks Goal 3:: LTG: Pt. to have increased TLF length noted by negative obers test. Goal Time Frame: 4-6 Weeks Goal 4:: LTG: Pt. to have increased B glute med and max strength to 5/5 throughout. Goal Time Frame: 4-6 Weeks Goal 5:: LTG: Pt. to complete all work out routines without increase in B hip pain. Goal Time Frame: 4-6 Weeks - Rehabilitation Potential Physical Therapy Diagnosis: Pt. has signs and symptoms consistent with B IT band syndrome. Pt. has marked tightness in B hips, especially with TFL and with hip external rotators. Pt. would benefit from TFL stretching, piriformis stretching, glute med and mas strengthening. Rehabilitation Potential: Excellent - Anticipated Interventions Patient/Client Instruction: Educate patient on: Condition, Plan of Care, Risk Factors, Benefits of Fitness Program For the Purpose of:: To facilitate caregiver knowledge, To improve self management, To prevent re-injury, To improve ability to perform tasks related to life management, To improve tolerance to ADL's Therapeutic Exercise to Include: Strength training, Power training, Endurance training, Body mechanics, Postural training, Flexibilty training, Passive ROM, Active ROM, Dynamic Lumbar Stabilization For the Purpose of:: To decrease pain, To increase ROM, To improve nutrient delivery to tissue, To increase oxygenation perfusion, To improve muscle performance and motor function, To improve ability to perform ADL's, To improve health of tissue, To decrease soft tissue restriction, To increase flexibility/ROM Manual Therapy Techniques to Include: Mobilization, Passive ROM For the Purpose of:: To decrease pain, To increase ROM, To improve muscle performance and motor function Thank you for the opportunity to evaluate your patient. For Medicare and Medicare HMO plans, please review the plan of care and approve it. It will need to be FAXED BACK to us at [phone] for Medicare purposes. For Medicare only, by signing this I certify the plan of care. Please let me know if there are questions or concerns regarding this plan of care. Physician Signature: Date:
== END 2023-03-31 19:00 | disposition home or self-care (01) ==
LOC: PT 17:00
PROVIDERS: PCP Family Medicine; Referring Provider Family Medicine; Visit Provider Family Medicine
DX: M76.31 Iliotibial band syndrome, right leg (principal); M76.32 Iliotibial band syndrome, left leg
CPT/HCPCS: 97110; 97161; 97164

== ENCOUNTER → 2023-12-16 | Outpatient (CLI) | payer OTHER, SELFPAY ==
--- OUTSIDE RECORDS SUMMARY | 2023-12-16 06:54 | XMS RPT_ITS | CCD ---
Author Name Unknown Address [address] [place] [address] Organization [facility] Care Team Providers Care Environmental Compliance Manager Name Role Phone ELLIOT SIMPSON Unavailable Unavailable Elliot Simpson Unavailable Unavailable DIMITRIOS SEGURA Unavailable Unavailable Problems Active Problems Problem Classification Problem Date Documented Da te Episodic/Chronic Unclassified (2 sources) Unknown / UNK(Unknown) Onset: 06-28-2018 Past or Other Problems Problem Classification Problem Date Documented Da te Episodic/Chronic Unclassified (1 source) employee health Onset: 06-28-2018 Encounters Encounter Date Encounter Type Care Provider Facility Start: 06-28-2018 End: 06-29-2018 Patient encounter ELLIOT SIMPSON [facility] Summary Purpose Family History No Family History Records FoundNo Family History Records Found Advance Directives No Advanced Directives Records FoundNo Advanced Directives Records Found Additional Source Comments INFORMATION SOURCE (unrecogn ized section and content) DATE CREATED AUTHOR AUTHOR'S ORGANIZ ATION 07/02/2018 [facility] FOR RECORDS PERTAINING TO PATIENTS WHO ARE OR HAVE BEEN ENROLLED IN A CHEMICAL DEPENDENCY/SUBSTANCEABUSE PROGRAM, SOME INFORMATION MAY BE OMITTED. This clinical summary was aggregated from multiple sources. Caution should be exercised in using it in the provision of clinical care. This summary normalizes information from multiple sources, and as a consequence, information in this document may materially change the coding, format and clinical context of patient data. In addition, data may be omitted in some cases. CLINICAL DECISIONS SHOULD BE BASED ON THE PRIMARY CLINICAL RECORDS. [employer] provides no warranty or guarantee of the accuracy or completeness of information in this document.
[2023-12-16 08:24] LABS: AST(SGOT) 18 U/L (15-37); Alanine Aminotransfer ALT/SGPT 22 U/L (13-56); Albumin, Serum 3.8 g/dL (3.2-5.0); Alkaline Phosphatase 52 U/L (45-117); Anion Gap 5 (5-15); BUN 19 mg/dL (7-18); BUN/Creat Ratio 22.8 RATIO (10-20); Calcium,Total 9.1 mg/dL (8.5-10.1); Chloride 109 mmol/L (98-107); Cholesterol 173 mg/dL (200); Creatinine, Serum 0.84 mg/dL (0.55-1.02); EST Glomerular Filtration Rate 79 mL/min (>60); Est Glom Filt Rate - Afr Amer 95 mL/min (>60); Globulin 3.7 g/dL (2.2-4.2); Glucose 99 mg/dL (74-106); High Density Lipoprotein 61 mg/dL; Potassium 4.3 mmol/L (3.5-5.1); Protein, Total 7.5 g/dL (6.4-8.2); Sodium Level 140 mmol/L (136-145); Thyroid Stim Hormone (TSH) 1.63 uIU/mL (0.358-3.74); Triglycerides 108 mg/dL; Very Low Density Lipoprotein 22 mg/dL (5-40)
[2023-12-16 10:27] LABS: Microalbumin,Random Urine 14.8 mg/L (NO RANGE EST.); Microalbumin:Creatinine Ratio 8.9 mg/g CRE (<30 mg/g CRE)
== END | disposition home or self-care (01) ==
LOC: LAB 06:52
PROVIDERS: PCP Family Medicine; Referring Provider Nurse Practitioner Family; Visit Provider Nurse Practitioner Family
DX: E11.9 Type 2 diabetes mellitus without complications (principal)
CPT/HCPCS: 36415; 80053; 80061; 82043; 82570; 84443

== ENCOUNTER → 2024-01-14 | Outpatient (CLI) | payer OTHER, SELFPAY ==
--- NOTE | 2024-01-14 09:01 | US_ITS ---
STUDY: ABDOMINAL ULTRASOUND - RIGHT UPPER QUADRANT; ELASTOGRAPHY REASON FOR VISIT: Female, 43 years old. NAFLD TECHNIQUE: Ultrasound evaluation of the right upper quadrant was performed with real-time and static bassett-scale imaging. Point quantification shear wave elastography was performed ([employer]). TECHNICAL QUALITY: Adequate. COMPARISON: Comparison is made with prior study of February 12, 2023. FINDINGS: Liver: The liver measures 17.6 cm. There is increased echogenicity consistent with fatty infiltration. The bile ducts are within normal limits. There is hepatic color flow. The direction of portal flow is hepatopetal. There is no demonstrated mass lesion. Median liver stiffness measured 9.9 kPa. Gallbladder: Normal distended gallbladder. The gallbladder wall measures 1.8 mm. There is a negative sonographic Jhaveri''s sign. There is no pericholecystic fluid. There are no gallstones. Common Bile Duct (C.B.D.): The common bile duct measures 2.7 mm. Pancreas: There is normal echogenicity of the visualized pancreas. There is no demonstrated pancreatic mass or cyst. Right Kidney: Normal size of the right kidney. The right kidney measures 11.2 cm x 6.3 cm x 5.1 cm. Normal renal cortex. The right cortex measures 1.4 cm. There is no demonstrated renal mass or cyst. There is no right hydronephrosis. US/ABD Limited w/ Elastography IMPRESSION: 1. Liver stiffness measures 9.9 kPa compatible with F2-F3 (Mild to moderate liver fibrosis) Metavir score. Electronically Signed: Murali Villalpando MD at 15:39 EDT ,
[2024-01-14 10:06] LABS: Hemoglobin A1c 5.7 % (3.8-5.6)
== END | disposition home or self-care (01) ==
LOC: US 08:43
PROVIDERS: Internal Medicine Endocrinology, Diabetes & Metabolism; PCP Family Medicine; Referring Provider Internal Medicine Gastroenterology; Visit Provider Internal Medicine Gastroenterology
DX: K76.0 Fatty (change of) liver, not elsewhere classified (principal); E11.65 Type 2 diabetes mellitus with hyperglycemia
CPT/HCPCS: 36415; 76705; 76981; 83036

== ENCOUNTER 2024-02-07 09:11 | Outpatient (REF) | payer SELFPAY ==
[2024-02-07 09:12] VITALS: BP 126/78; PULSE 96; RESP 18; TEMP 35.8; O2SAT 98; BMI 35.8
--- NOTE | 2024-02-07 09:23 | EX.ED.GENINJ ---
HPI History of Present Illness Chief Complaint: Occup Expose Informant: patient Narrative Narrative: Patient presents with needlestick to her right hand. 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 She was wearing 2 sets a glove this and when she went to turn she actually was stuck by approximately 25-gauge needle on her right hand that had been used by the surgeon to inject local anesthetic. As she immediately washed her hand with Betadine. She switched gloves and then after the case washed her hands further. Patient denies any known history of blood-borne pathogens and states that the patient was low risk. Not having bleeding or pain from the needlestick itself. No other complaints or concerns at this time. [facility] Medical History Abnormal Pap smear of cervix Alcohol use ASCUS of cervix with negative high risk HPV Diabetes High cholesterol History of steroid therapy Knee pain Migraine headache NAFLD (nonalcoholic fatty liver disease) Non-smoker Sleep apnea Wears glasses Home Medications cholecalciferol (vitamin D3) 50 mcg (2,000 unit) capsule 50 mcg PO DAILY 11/06/20 [History Last Taken Unknown] multivitamin 1 tab PO DAILY 11/06/20 [History Last Taken Unknown] ascorbic acid (vitamin C) 500 mg tablet (Vitamin C) 1,000 mg PO DAILY 01/06/23 [History Last Taken Unknown] omega-3 fatty acids 2,000 mg PO DAILY 01/06/23 [History Last Taken Unknown] rosuvastatin 5 mg tablet 5 mg PO QHS 01/06/23 [History Last Taken Unknown] vitamin E 800 unit capsule 800 unit PO DAILY 01/06/23 [History Last Taken Unknown] fexofenadine 60 mg tablet (Otilia Allergy) 60 mg PO Q12H 05/10/23 [History Last Taken Unknown] semaglutide 1 mg/dose (4 mg/3 mL) subcutaneous pen injector (Ozempic) 1 mg (0.75 mL) subcut QWEEK #3 mL 08/18/23 [Rx Last Taken Unknown] empagliflozin 25 mg tablet (Jardiance) 25 mg PO DAILY #90 tabs 09/13/23 [Rx Last Taken Unknown] Allergy/AdvReac Type Severity Reaction Status Date / Time No Known Allergies Allergy Verified 08/18/23 13:55 Family History Father Hypertension Heart disease Myocardial infarction Mother Left bundle branch block Grandmother CVA (cerebral vascular accident) Osteomyelitis Grandfather Heart disease Surgical History H/O oral surgery Hx of tubal ligation S/p bilateral carpal tunnel release S/P Social History 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 [employer] Smoking Status: Never smoker alcohol intake: never substance use type: does not use caffeine: No what type of physical activity do you participate in: other details: stepper frequency: 5-6 times per week seatbelt use: always do you feel safe at home: Yes additional social history: - Mann ROS ROS ED Constitutional Constitutional ED: Denies chills or fever(s) Musculoskeletal Musculoskeletal: Denies arthralgias or myalgias Integumentary Reports other Details: needle stick to right hand ; Denies rash Neurologic Neurologic: Denies paresthesias Hematologic/Lymphatic Hematologic/Lymphatic: Denies easy bleeding or easy bruising EXAM Physical Exam Const Vital Signs: 02/07/24 09:12 Temperature 96.5 F L Temperature Source Temporal Pulse Rate 96 Respiratory Rate 18 Blood Pressure 126/78 H Blood Pressure Mean 94 Pulse Ox 98 Oxygen Delivery Method Room Air Positive well nourished and well developed General Appearance ED: well developed and NAD HEENT atraumatic Neck full ROM Resp normal respiratory effort Extremity normal to inspection and full ROM Neuro oriented x3 and moves all extremities Psych mental status grossly normal and thought process normal Skin Skin Narrative: Needlestick present of the right dorsum of the hand near the second MCP. No active bleeding. Slight amount of bruising around it. No other wounds appreciated. MDM MDM MDM Narrative Medical decision making narrative: Patient evaluated for needlestick injury. Brought to the ER per protocol for occupational exposure. Declines postexposure prophylaxis at this time we will wait on source blood. I feel that this is quite reasonable. Given return precautions. Does not require localized wound care at this time. Discharged in stable condition. Discharge Plan Triage Chief Complaint: Occup Expose ED Provider: Alma Mantilla Dx/Rx/DC Orders Clinical Impression: Needle stick injury of hand Instructions: ED NEEDLE STICK Health Care Worker Prescriptions: No Action multivitamin Tablet 1 tab PO DAILY cholecalciferol (vitamin D3) 50 mcg (2,000 unit) capsule 50 mcg PO DAILY fexofenadine [Otilia Allergy] 60 mg tablet 60 mg PO Q12H Ozempic 1 mg/dose (4 mg/3 mL) pen injector 1 mg subcut QWEEK Qty: 3 5RF ascorbic acid (vitamin C) [Vitamin C] 500 mg Tablet 1,000 mg PO DAILY vitamin E 800 unit Capsule 800 unit PO DAILY [place] 3 Natural Fish Oil Conc Capsule 2,000 mg PO DAILY rosuvastatin 5 mg tablet 5 mg PO QHS Patient Comments: TAKE 1 TABLET BY MOUTHCONCE DAILY AT BEDTIME Jardiance 25 mg tablet 25 mg PO DAILY Qty: 90 1RF Primary Care Provider: Skylar Roman Referrals: [facility] [Group of Physicians] - Skylar Roman MD [Primary Care Provider] - Disposition Disposition: Home, Self Care
[2024-02-07 09:51] VITALS: BP 129/74; PULSE 82; RESP 16; TEMP 36.4; O2SAT 99
[2024-02-07 10:45] LABS: HIV - WCH Non-Reactive (Nonreactive); Hepatitis B Surface Antibody Non-Reactive; Hepatitis B Surface Antigen Non-Reactive (Nonreactive); Hepatitis C Antibody Non-Reactive (Nonreactive)
== END 2024-02-07 09:52 | disposition home or self-care (01) ==
LOC: EDREF 09:11
PROVIDERS: PCP Family Medicine; Visit Provider Emergency Medicine
DX: S61.431A Puncture wound without foreign body of right hand, initial encounter (principal); E11.9 Type 2 diabetes mellitus without complications; E78.00 Pure hypercholesterolemia, unspecified; W46.1XXA Contact with contaminated hypodermic needle, initial encounter; Y93.F9 Activity, other caregiving; Y99.0 Civilian activity done for income or pay; Y92.234 Operating room of hospital as the place of occurrence of the external cause; Z79.899 Other long term (current) drug therapy
CPT/HCPCS: 86703; 86706; 86803; 87340

== ENCOUNTER → 2024-03-01 | Outpatient (CLI) | payer OTHER, SELFPAY ==
--- NOTE | 2024-03-01 10:39 | BI_ITS ---
MAMMOGRAPHY - BILATERAL SCREENING REASON FOR EXAM: Female, 44 years old. Routine annual screening examination. PERTINENT HISTORY: Non-contributory. TECHNIQUE: Digital bilateral breast zoe (3D mammographic acquisition) in the CC and MLO projections. 2-D mediolateral oblique (MLO) and craniocaudad (CC) views of both breasts were obtained. CAD: Full Field Digital Mammography with Computer Added Detection was performed. COMPARISON: Comparison is made with prior study dated February 12, 2023 and February 04, 2022. FINDINGS: Breast Composition: There are scattered areas of fibroglandular density. There are no dominant masses or suspicious calcifications. No other significant abnormalities are identified. There has been no significant change since the prior study. BI/SCRN MAMM (CAD)W/ZOE BILAT IMPRESSION: Stable bilateral screening mammogram. Yearly follow-up mammogram recommended. (A) ASSESSMENT CATEGORY: BIRADS Category 1: Negative. A letter regarding these results will be sent to the patient by the facility within 30 days. Approximately 10% of breast cancers are not detected by mammography. A normal mammogram should not delay biopsy of a clinically suspicious abnormality. [id number] Electronically Signed: Murali Villalpando MD at 12:19 EDT ,
== END | disposition home or self-care (01) ==
LOC: OPBI 10:35
PROVIDERS: PCP Family Medicine; Referring Provider Obstetrics & Gynecology; Visit Provider Obstetrics & Gynecology
DX: Z12.31 Encounter for screening mammogram for malignant neoplasm of breast (principal)
CPT/HCPCS: 77063; 77067

== ENCOUNTER 2024-11-13 05:54 | Day surgery (SDC) | payer OTHER, SELFPAY ==
[2024-11-13] VITALS (8 sets, daily range): BP systolic 100–140; BP diastolic 60–85; PULSE 70–89; RESP 16–18; TEMP 36.3–37.3; O2SAT 96–100; BMI 36.0
--- NOTE | 2024-11-13 06:50 | PCM.HP.STD ---
HPI - General General Date of Admission: 11/13/24 Date of Service: 11/13/24 Chief Complaint: Screening colonoscopy HPI Narrative ARA URRUTIA, is a 44 F who presents today for screening colonoscopy. She has never had a colonoscopy in the past. She denies any chest pain or shortness of breath. Overall she is in very good health. ON LICENSE OF [facility] Medical History Wears glasses Alcohol use History of steroid therapy Diabetes High cholesterol Migraine headache Non-smoker Sleep apnea NAFLD (nonalcoholic fatty liver disease) ASCUS of cervix with negative high risk HPV Knee pain Abnormal Pap smear of cervix Home Medications ?Medication ?Instructions ?Recorded ?Last Taken ?Type cholecalciferol (vitamin D3) 50 50 mcg PO DAILY 11/06/20 11/11/24 History mcg (2,000 unit) capsule multivitamin 1 tab PO DAILY 11/06/20 11/10/24 History ascorbic acid (vitamin C) 500 mg 1,000 mg PO DAILY 01/06/23 11/11/24 History tablet (Vitamin C) omega-3 fatty acids 2,000 mg PO DAILY 01/06/23 11/10/24 History rosuvastatin 5 mg tablet 5 mg PO QHS 01/06/23 11/12/24 History vitamin E 800 unit capsule 800 unit PO DAILY 01/06/23 11/11/24 History fexofenadine 60 mg tablet (Otilia 60 mg PO Q12H 05/10/23 11/11/24 History Allergy) levonorgestrel (Mirena) 1 device intrauterine ONCE 03/09/24 Unknown History empagliflozin 25 mg tablet 25 mg PO DAILY #90 tabs 08/16/24 11/10/24 Rx (Jardiance) magnesium oxide 400 mg PO QDAY 08/16/24 11/11/24 History potassium chloride 20 mEq 20 meq PO QDAY 08/16/24 11/11/24 History tablet,extended release semaglutide 2 mg/dose (8 mg/3 mL) 2 mg (0.75 mL) subcut QWEEK #6 mL 08/16/24 10/19/24 Rx subcutaneous pen injector (Ozempic) Allergy/AdvReac Type Severity Reaction Status Date / Time No Known Allergies Allergy Verified 11/10/24 10:40 Family History Father Hypertension Heart disease Myocardial infarction Mother Left bundle branch block Grandmother CVA (cerebral vascular accident) Osteomyelitis Grandfather Heart disease Surgical History S/p bilateral carpal tunnel release Hx of tubal ligation S/P H/O oral surgery Social History 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 [employer] Smoking Status: Never smoker alcohol intake: never substance use type: does not use caffeine: No what type of physical activity do you participate in: aerobics frequency: 5-6 times per week seatbelt use: always do you feel safe at home: Yes additional social history: - Mann ROS Constitutional Constitutional: Denies fatigue, fever(s), poor appetite, weight gain or weight loss Gastrointestinal Gastrointestinal: Denies belching, bloating, change in bowel habits, change in stool character, chewing difficulty, coffee ground emesis, constipation, cramping, diarrhea, dyspepsia, dysphagia, early satiety, excessive flatus, fecal incontinence, heartburn, hematemesis, hematochezia, hemorrhoids, loose stools, melena, nausea, odynophagia, rectal bleeding, tenesmus, vomiting or weight changes Vital Signs Vital Signs Vital Signs: 11/13/24 06:35 11/13/24 06:36 Temperature 97.6 F L Temperature Source Temporal Pulse Rate 89 Respiratory Rate 16 Respiratory Pattern Normal Blood Pressure 140/85 H Blood Pressure Mean 103 Blood Pressure Source Monitor Blood Pressure Position Semi-Fowlers Blood Pressure Location Right Arm Pulse Ox 100 Oxygen Delivery Method Room Air Weight Weight: 210 lb Body Mass Index (BMI) 36.0 Physical Exam Const alert, oriented x3, no apparent distress and healthy appearing General Appearance: cooperative GI normal to inspection, nondistended, normoactive bowel sounds, soft to palpation, non-tender and non-distended Percussion: normal to percussion Rectal Exam: deferred Assessment & Plan Assessment/Plan (1) Encounter for screening colonoscopy: PLAN: She was explained alternatives including not withstanding bleeding, infection, sepsis, perforation, need for emergent surgery . She will have an ASA of 3.
--- NOTE | 2024-11-13 06:55 | PRE.ANES_ITS ---
ASA Classification* ASA Classification ASA Classification: 2 Assessment & Plan Anesthesia* Anesthesia Assessment Anesthesia Assessment: Discussed sedation and/or anesthesia options, risks, benefits, and alternatives with patient/parents/legal guardian/POA. Questions invited. The patient/parents/legal guardian/POA seems to understand and agrees to proceed with anesthesia plan. Reviewed the physical assessment, medical history, allergy history and patient home medications list prior to surgery/procedure/anesthetic and documented any changes. Performed airway and anesthesia risk assessments. Anesthesia Type Anesthesia Type: MAC Anesthesia Focused Assessment* Temperature: 97.6 F Pulse Rate: 89 Blood Pressure: 140/85 Respiratory Rate: 16 Pulse Ox: 100 Airway Assessment Mouth opens: >3 cm Mallampati Score: II Focused Labs Anesthesia Preop lab: CBC WBC 8.4 K/mm3 (4.4-11.0) 02/27/22 13:47 RBC 4.57 M/mm3 (4.2-5.4) 02/27/22 13:47 Hgb 13.4 g/dL (12.0-15.0) 02/27/22 13:47 Hct 40.7 % (37-47) 02/27/22 13:47 Plt Count 316 K/mm3 (150-450) 02/27/22 13:47 CHEMISTRY Potassium 4.3 mmol/L (3.5-5.1) 12/16/23 06:59 Sodium 140 mmol/L (136-145) 12/16/23 06:59 BUN 19 mg/dL (7-18) H 12/16/23 06:59 Creatinine 0.84 mg/dL (0.55-1.02) 12/16/23 06:59 Glucose 99 mg/dL (74-106) 12/16/23 06:59 POC Glucose 102 mg/dL (74-106) 01/14/23 07:20 TSH 1.63 uIU/mL (0.358-3.74) 12/16/23 06:59 COAG Pre-Assessment Diagnosis/Proposed Procedure Planned Operative Procedure(s): COLONOSCOPY Anesthesia History Anesthesia History - occupational health and safety manager: Anesthesia History - occupational health and safety manager Hx Hospitalization No 11/10/24 10:46 Any Problems With Anesthesia Yes: NAUSEA 11/10/24 10:46 Cholinesterase deficiency No 11/10/24 10:46 You/Your Family Experience No 11/10/24 10:46 fever (hyperthermia) with Relationship Recent Exposure to Contagious No 11/13/24 06:35 Disease Does patient have nerve No 11/10/24 10:46 stimulator Patient instructed to have device shut off --Does patient have Pacemaker No 11/13/24 06:36 or ICD? When Was Last Pacemaker Check QUESTION #4 FULL TEXT: You/Your Family Experience fever (hyperthermia) with Anesthesia Last Oral Intake Last Oral intake: Last Oral Intake NPO since 03:00 11/13/24 06:36 Meds taken in AM with sips of No 11/13/24 06:36 water? Meds patient instructed to take am of surgery PONV PONV - occupational health and safety manager: PONV - occupational health and safety manager Female Yes 11/10/24 10:46 HX of Motion Sickness No 11/10/24 10:46 HX of N/V After Surgery No 11/10/24 10:46 Non-Smoker Yes 11/10/24 10:46 Duration of Surgery greater No 11/10/24 10:46 than 60 minutes Number of Risk Factors 2 11/10/24 10:46 PONV Score Moderate Risk 11/10/24 10:46 Height & Weight Height & Weight: Anesthesia: Height & Weight Height 5 ft 4 in 11/13/24 06:36 Weight: 95.254 kg 11/13/24 06:36 Body Mass Index (BMI) 36.0 11/13/24 06:36 Respiratory Assessment Respiratory Assessment - occupational health and safety manager: Respiratory Tract Infection Hx - occupational health and safety manager Hx Respiratory Tract Infection No 11/10/24 10:46 STOP Sleep Apnea STOP Sleep Apnea - occupational health and safety manager: STOP Sleep Apnea - occupational health and safety manager Hx Hypertension No 11/10/24 10:46 Hx Sleep Apnea Yes: NO MACHINE USED 11/10/24 10:46 CPAP No 11/10/24 10:46 BIPAP No 11/10/24 10:46 Do you snore loudly (louder than talking or can be heard Do you often feel tired/ fatigued/ sleepy during daytime? Has anyone observed you stop breathing during sleep? STOP Results Positive 11/10/24 10:46 QUESTION #5 FULL TEXT : Do you snore loudly (louder than talking or can be heard through closed doors)? Tobacco Use History Tobacco Use History - occupational health and safety manager: Tobacco Use History - occupational health and safety manager Tobacco Use Smoking Status Never smoker 11/10/24 10:46 Hx Tobacco Use No 11/10/24 10:46 Years Smoking Packs Smoked per Day Smoking Cessation Date was within the last 15 years Hx Smoking Cessation Date Hx Smoking Cessation Counseling Hematologic Medial History Hematologic Hx - occupational health and safety manager: Hematologic Medical Hx - chief strategy officer Hx of Blood Transfusion No 11/10/24 10:46 Hx of Transfusion in last 3 No 11/10/24 10:46 Months Date of Last Transfusion (if within last 3 months) Ever experience any problems No 11/10/24 10:46 with transfusion(s)? Specify any problems Hx of Preganancy in last 3 No 11/10/24 10:46 Months Nurse Filling Out Transfusion VCHRISTIN 11/10/24 10:46 & Questions: Date: 11/10/24 11/10/24 10:46 Time: 10:47 11/10/24 10:46 Patient unable to answer at this time (ie. confused, unrespo /Reproduction History /Reproductive History - occupational health and safety manager: /Reproductive Hx- occupational health and safety manager Hx Now No 11/10/24 10:46 Gestational Age (in weeks): EDC: Hx Hx Para Hx Section SAB No 11/10/24 10:46 [facility] Medical History Wears glasses Alcohol use History of steroid therapy Diabetes High cholesterol Migraine headache Non-smoker Sleep apnea NAFLD (nonalcoholic fatty liver disease) ASCUS of cervix with negative high risk HPV Knee pain Abnormal Pap smear of cervix Home Medications ?Medication ?Instructions ?Recorded ?Last Taken ?Type cholecalciferol (vitamin D3) 50 50 mcg PO DAILY 11/06/20 11/11/24 History mcg (2,000 unit) capsule multivitamin 1 tab PO DAILY 11/06/20 11/10/24 History ascorbic acid (vitamin C) 500 mg 1,000 mg PO DAILY 01/06/23 11/11/24 History tablet (Vitamin C) omega-3 fatty acids 2,000 mg PO DAILY 01/06/23 11/10/24 History rosuvastatin 5 mg tablet 5 mg PO QHS 01/06/23 11/12/24 History vitamin E 800 unit capsule 800 unit PO DAILY 01/06/23 11/11/24 History fexofenadine 60 mg tablet (Otilia 60 mg PO Q12H 05/10/23 11/11/24 History Allergy) levonorgestrel (Mirena) 1 device intrauterine ONCE 03/09/24 Unknown History empagliflozin 25 mg tablet 25 mg PO DAILY #90 tabs 08/16/24 11/10/24 Rx (Jardiance) magnesium oxide 400 mg PO QDAY 08/16/24 11/11/24 History potassium chloride 20 mEq 20 meq PO QDAY 08/16/24 11/11/24 History tablet,extended release semaglutide 2 mg/dose (8 mg/3 mL) 2 mg (0.75 mL) subcut QWEEK #6 mL 08/16/24 10/19/24 Rx subcutaneous pen injector (Ozempic) Allergy/AdvReac Type Severity Reaction Status Date / Time No Known Allergies Allergy Verified 11/10/24 10:40 Family History Father Hypertension Heart disease Myocardial infarction Mother Left bundle branch block Grandmother CVA (cerebral vascular accident) Osteomyelitis Grandfather Heart disease Surgical History S/p bilateral carpal tunnel release Hx of tubal ligation S/P H/O oral surgery Social 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
[2024-11-13 07:04] LABS: Bedside Glucose 88 mg/dL (74-106)
--- NOTE | 2024-11-13 07:51 | OP.COLON_ITS ---
Patient Name: Marjan Garcia Procedure Date: 11/13/2024 7:17 AM Date of : 1980 Age: 44 Procedure: Colonoscopy Indications: Screening for colorectal malignant neoplasm, Screening for colon cancer: Family history of colon polyps in distant relative(s) before age 60 Providers: Thor Urbano DO Referring MD: Thor Urbano DO Medicines: Midazolam 2 mg IV, Fentanyl 70 micrograms IV, Monitored Anesthesia Care Patient Profile: This is a 44 year old female. Refer to note in patient chart for documentation of history and physical. Last Colonoscopy: none. The patient's first colonoscopy is today. Complications: No immediate complications. Procedure: Pre-Anesthesia Assessment: - Prior to the procedure, a History and Physical was performed, and patient medications and allergies were reviewed. The patient is competent. The risks and benefits of the procedure and the sedation options and risks were discussed with the patient. All questions were answered and informed consent was obtained. Patient identification and proposed procedure were verified by the physician in the pre-procedure area. Mental Status Examination: alert and oriented. Airway Examination: normal oropharyngeal airway and neck mobility. Respiratory Examination: clear to auscultation. CV Examination: normal. Prophylactic Antibiotics: The patient does not require prophylactic antibiotics. Prior Anticoagulants: The patient has taken no anticoagulant or antiplatelet agents. ASA Grade Assessment: II - A patient with mild systemic disease. After reviewing the risks and benefits, the patient was deemed in satisfactory condition to undergo the procedure. The anesthesia plan was to use monitored anesthesia care (MAC). Immediately prior to administration of medications, the patient was re-assessed for adequacy to receive sedatives. The heart rate, respiratory rate, oxygen saturations, blood pressure, adequacy of pulmonary ventilation, and response to care were monitored throughout the procedure. The physical status of the patient was re-assessed after the procedure. After I obtained informed consent, the scope was passed under direct vision. Throughout the procedure, the patient's blood pressure, pulse, and oxygen saturations were monitored continuously. The colonoscope was introduced through the anus and advanced to the cecum, identified by appendiceal orifice and ileocecal valve. The colonoscopy was performed without difficulty. The patient tolerated the procedure well. The procedure was determined to be ASGE Complexity Level 1. Moderate Sedation: The administration of moderate sedation was initiated at 07:03 AM. Scope In: 7:27:49 AM Scope Withdrawal Time 0 hours 7 minutes 42 seconds Scope Out: 7:45:13 AM Total Procedure Duration Time 0 hours 17 minutes 24 seconds Findings: The perianal and digital rectal examinations were normal. The recto-sigmoid colon, sigmoid colon and hepatic flexure were moderately redundant. Impression: - No specimens collected. Recommendation: - Discharge patient to home. - Resume previous diet. - Continue present medications. - Repeat colonoscopy in 10 years for screening purposes. Procedure Code(s): --- Professional --- G0121, Colorectal cancer screening; colonoscopy on individual not meeting criteria for high risk CPT copyright 2021 [employer]. All rights reserved. The codes documented in this report are preliminary and upon director of leadership development review may be revised to meet current compliance requirements. Thor Urbano DO 11/13/2024 7:51:30 AM This report has been signed electronically. Number of Addenda: 0 Note Initiated On: 11/13/2024 7:17 AM
--- NOTE | 2024-11-13 07:52 | OP.CCLET_ITS ---
11/13/2024 Skylar Roman [place] [id number] [address] Re : Colonoscopy procedure for Marjan Garcia Dear Dr. Roman This procedure was performed on Wednesday, November 13, 2024. My impressions and recommendations are as follows: Impressions : - No specimens collected. Recommendations : - Discharge patient to home. - Resume previous diet. - Continue present medications. - Repeat colonoscopy in 10 years for screening purposes. My findings are described in the full procedure note, which is enclosed. If I can be of further assistance, please feel free to contact me at . Sincerely, Thor Urbano, 11/13/2024 7:51:30 AM This report has been signed electronically.
--- NOTE | 2024-11-13 07:53 | PCM.POST.ANE ---
Anesthesia: Postop Eval I Current Vital Signs Temperature: 97.3 F Pulse Rate: 73 Blood Pressure: 100/73 Respiratory Rate: 16 Pulse Ox: 97 Oxygen Delivery Method: Room Air Assessment Airway patent: Yes Spontaneous unlabored respirations: Yes Mental status: Awake and Calm nausea: No Vomiting: No Anesthesia Complication: No Fluid Hydration Crystalloid volume administer (ml): 40 Total IV fluid infused: 40 Progress Note Anesthesia document: Postop Eval 1 completed: Yes
--- NOTE | 2024-11-13 08:50 | PCM.POSTANE2 ---
Anesthesia Postop Eval I Sum Postop Eval Completion status Anesthesia document: Postop Eval 1 completed: Yes Anesthesia Postop Eval I Summary Anesthesia Postop Eval I Summary: Anesthesia Postop Eval I: Assessment Summary Airway patent Yes 11/13/24 07:54 [email or web address] Spontaneous unlabored Yes 11/13/24 07:54 [email or web address] respirations Mental status Awake,Calm 11/13/24 07:54 [email or web address] nausea No 11/13/24 07:54 [email or web address] Vomiting No 11/13/24 07:54 [email or web address] Anesthesia Postop Eval I: Fluid Summary Crystalloid volume administer 40 11/13/24 07:54 [email or web address] (ml) Colloids volume administered ( ml) Blood Product volume administered (ml) Total IV fluid infused 40 11/13/24 07:54 [email or web address] Anesthesia Postop Eval I: Summary Notes Anesthesia Complication No 11/13/24 07:54 [email or web address] Anesthesia Complication Comment: Post-operative progress note Anesthesia: Postop Eval II Evaluation Mental status: Awake Pain Level: 0 nausea: No Vomiting: No
== END 2024-11-13 08:37 | disposition home or self-care (01) ==
LOC: EN 05:54 → AC 05:55
PROVIDERS: PCP Family Medicine; Referring Provider Family Medicine; Visit Provider Internal Medicine Gastroenterology
PROC: 0DJD8ZZ Inspection of Lower Intestinal Tract, Via Natural or Artificial Opening Endoscopic (ICD-10-PCS; CPT 45378; principal; 2024-11-13 06:55)
DX: Z12.11 Encounter for screening for malignant neoplasm of colon (principal); E11.9 Type 2 diabetes mellitus without complications; Z79.84 Long term (current) use of oral hypoglycemic drugs; Z79.85 Long-term (current) use of injectable non-insulin antidiabetic drugs; E78.00 Pure hypercholesterolemia, unspecified; Z79.899 Other long term (current) drug therapy
CPT/HCPCS: 45378

== ENCOUNTER → 2024-11-15 | Outpatient (CLI) | payer OTHER, SELFPAY ==
--- NOTE | 2024-11-15 08:31 | US_ITS ---
STUDY: ABDOMINAL ULTRASOUND - RIGHT UPPER QUADRANT; ELASTOGRAPHY REASON FOR VISIT: Female, 44 years old. Fatty infiltration of the liver. TECHNIQUE: Ultrasound evaluation of the right upper quadrant was performed with real-time and static bassett-scale imaging. Point quantification shear wave elastography was performed (Xcerion). TECHNICAL QUALITY: Adequate. COMPARISON: Comparison is made with prior study January 14, 2024. FINDINGS: Liver: The liver is enlarged and measures 19.2 cm. There is increased echogenicity consistent with fatty infiltration. The bile ducts are within normal limits. There is hepatic color flow. The direction of portal flow is hepatopetal. There is no demonstrated mass lesion. Median liver stiffness measured 13.1 kPa. Gallbladder: Normal distended gallbladder. The gallbladder wall measures 1 mm. There is a negative sonographic Jhaveri''s sign. There is no pericholecystic fluid. There are no gallstones. Common Bile Duct (C.B.D.): The common bile duct measures 2 mm. Pancreas: There is normal echogenicity of the visualized pancreas. There is no demonstrated pancreatic mass or cyst. Right Kidney: Normal size of the right kidney. The right kidney measures 10.5 cm x 6.27 x 5.1 cm. Normal renal cortex. The right cortex measures 1.5 cm. There is no demonstrated renal mass or cyst. There is no right hydronephrosis. US/ABD Limited w/ Elastography IMPRESSION: 1. Liver stiffness measures 13.1 kPa compatible with F3-F4 (Moderate to severe liver fibrosis) Metavir score. Electronically Signed: Murali Villalpando MD at 13:04 EST ,
== END | disposition home or self-care (01) ==
LOC: US 08:30
PROVIDERS: PCP Family Medicine; Referring Provider Internal Medicine Gastroenterology; Visit Provider Internal Medicine Gastroenterology
DX: K76.0 Fatty (change of) liver, not elsewhere classified (principal)
CPT/HCPCS: 76705; 76981

== ENCOUNTER → 2024-12-13 | Outpatient (CLI) | payer OTHER, SELFPAY ==
[2024-12-13 07:38] LABS: Platelet Count 263 K/mm3 (150-450)
[2024-12-13 07:48] LABS: Prothrombin Time (Protime)PT. 13.3 SECONDS (11.7-14.9)
[2024-12-13 07:49] LABS: Partial Thromboplast Time 26.4 Seconds (24.1-36.2)
[2024-12-13 08:09] LABS: Hemoglobin A1c 5.8 % (3.8-5.6)
[2024-12-13 08:13] LABS: ALB/GLOB Ratio 1.2 RATIO (0.9-2.4); AST(SGOT) 16 U/L (15-37); Alanine Aminotransfer ALT/SGPT 23 U/L (13-56); Albumin, Serum 3.8 g/dL (3.2-5.0); Alkaline Phosphatase 39 U/L (45-117); Anion Gap 3 (5-15); BUN 21 mg/dL (7-18); BUN/Creat Ratio 25.1 RATIO (10-20); Calcium,Total 8.9 mg/dL (8.5-10.1); Chloride 108 mmol/L (98-107); Cholesterol 154 mg/dL (200); Creatinine, Serum 0.84 mg/dL (0.55-1.02); EST Glomerular Filtration Rate 78 mL/min (>60); Est Glom Filt Rate - Afr Amer 95 mL/min (>60); Globulin 3.2 g/dL (2.2-4.2); Glucose 99 mg/dL (74-106); High Density Lipoprotein 66 mg/dL; Potassium 3.6 mmol/L (3.5-5.1); Sodium Level 138 mmol/L (136-145); Triglycerides 100 mg/dL; Very Low Density Lipoprotein 20 mg/dL (5-40); Vitamin D,25 Hydroxy 42.6 ng/mL
[2024-12-13 11:53] LABS: Microalbumin,Random Urine 21.5 mg/L (NO RANGE EST.); Microalbumin:Creatinine Ratio 9.4 mg/g CRE (<30 mg/g CRE)
== END | disposition home or self-care (01) ==
LOC: LAB 07:11
PROVIDERS: Internal Medicine Gastroenterology; PCP Family Medicine; Referring Provider Nurse Practitioner Family; Visit Provider Nurse Practitioner Family
DX: K76.0 Fatty (change of) liver, not elsewhere classified (principal); E11.65 Type 2 diabetes mellitus with hyperglycemia
CPT/HCPCS: 36415; 80053; 80061; 82043; 82306; 82570; 83036; 84443; 85049; 85610; 85730

== ENCOUNTER → 2024-12-14 | Outpatient (CLI) | payer OTHER, SELFPAY ==
[2024-12-14] VITALS (14 sets, daily range): BP systolic 103–138; BP diastolic 64–90; PULSE 67–80; RESP 10–15; TEMP 36.4; O2SAT 91–100; BMI 36.0
--- NOTE | 2024-12-14 | LIVB_PTH ---
PATIENT: ARA URRUTIA LOC: CT U#:[id number] AGE/SX: 44/F ROOM: RE12/14/[address]: Dr. Thor Urbano DO : 1980 BED: DIS: 12/14/2024 SPEC #: [id number] RECD: 12/14/24 10:46 STATUS: SOFIA REQ #: [id number] DANIEL: 12/14/24 00:[address]: Thor Urbano DEPT: SURGICAL PATHOLOGY RECD BY: Gloria Lugo ENTERED: 12/14/24 11:35 SP TYPE: LIVER BX OTHR DR: Dr. Skylar Roman MD Tissues: Liver, NOS Procedures: PAS with Diastase (control) Trichrome (control) Special Stain Group I PAS Stain (control) Surgery Specimen Level V Retic (control) Iron Stain (control) HEADER OPERATION: CT guided liver biopsy PRE-OP DIAGNOSIS: Fatty liver TISSUE SUBMITTED: 18 gauge x 4 cores MICROSCOPIC DIAGNOSIS Liver, CT guided core biopsy: Liver parenchymal tissue with mild portal chronic inflammation. See microscopic description and comment. BAILEYJoe 12/15/2024 COMMENT Correlation with clinical, laboratory, radiologic findings and appropriate follow up are necessary. MICROSCOPIC DESCRIPTION Slides are reviewed. The specimen shows liver parenchymal tissue with preserved lobular architecture. Hepatocytes are unremarkable. Macro or microvesicular steatosis is not seen. Portal areas show focal mild chronic inflammation predominantly consisting of lymphocytes. Interface inflammation is not seen. Iron stain shows a trace amount of iron in the hepatocytes. Reticulin stain highlights preserved lobular architecture. PAS stain with and without diastase do not show any abnormal accumulation of protein. Trichrome stain does not show significant increased portal or periportal fibrosis. All stains have been performed with appropriate matched controls. GROSS DESCRIPTION Received is one container labeled with the patient's name and not further designated. The specimen consists of multiple irregular fragments of kurtz soft tissue that in aggregate measure 1.5 x 0.3 x 0.1 cm. The specimen is totally submitted in one cassette. [email or web address] 12/14/2024 TC:3 CPT:33327,05522w1
--- NOTE | 2024-12-14 08:51 | CT_ITS ---
EXAM: BIOPSY/INJ OR NEEDLE PLACEMENT CLINICAL HISTORY: Fatty infiltration of the liver. COMPARISON: None. TECHNIQUE: The procedure as well as the benefits and possible complications including infection and bleeding were explained to the patient. Informed consent was obtained. The patient was in the supine position. A biopsy site were localized in the left hepatic lobe. Conscious sedation was performed. The patient received 2 mg of Versed and 50 mcg of fentanyl intravenously. Conscious sedation was started at 10:10 a.m. and terminated at 10:31 a.m.. The patient was independently monitored by the department nurse. Following this, 4 18 gauge core biopsies were obtained in the left lobe of the liver. The specimen was sent to the laboratory for analysis. The patient tolerated the procedure well. FINDINGS: Successful core liver biopsy. CT/Biopsy/Inj or Needle Placement IMPRESSION: Successful core liver biopsy. The patient tolerated the procedure well. No im mediate complication seen. Reading Location: [place] [id number]
[2024-12-14] MEDS: Midazolam 2 MG/2 ML Syringe IV (10:10)
[2024-12-14] MEDS: 0.9% Saline Lock 10 ML Syringe IV (10:14)
[2024-12-14] MEDS: fentaNYL 100 MCG/2 ML Ampul IV (10:15)
[2024-12-14] MEDS: Lidocaine 2% (20 ml mdv) 20 ML Vial INFILT (10:27)
[2024-12-14] MEDS: Ketorolac 30 MG/ML Syringe IV (10:50)
== END | disposition home or self-care (01) ==
PROVIDERS: PCP Family Medicine; Referring Provider Internal Medicine Gastroenterology; Visit Provider Internal Medicine Gastroenterology
DX: K76.0 Fatty (change of) liver, not elsewhere classified (principal)
CPT/HCPCS: 47000; 77012; 88307; 88312; 99156; A4216

== ENCOUNTER → 2025-10-10 | Outpatient (CLI) | payer OTHER, SELFPAY ==
--- NOTE | 2025-10-10 12:36 | BI_ITS ---
EXAM: SCRN MAMM (CAD)W/ZOE BILAT DATE: 10/10/2025 CLINICAL HISTORY: F, Age 45 y/o , SCREENING No family history. TECHNIQUE: Procedure Code: [id number] Modality: MG Procedure: SCRN MAMM (CAD)W/ZOE BILAT COMPARISON: Prior exam(s) dated March 01, 2024.. FINDINGS: TISSUE DENSITY: There are scattered areas of fibroglandular density. Bilateral Breast Mammographic Findings: No significant masses, calcifications or other abnormalities are identified. No suspicious masses, areas of developing architectural distortion, or suspicious calcifications. There has been no significant interval change. BI/SCRN MAMM (CAD)W/ZOE BILAT IMPRESSION: Stable bilateral screening mammogram. OVERALL FINAL ASSESSMENT BI-RADS 1: NEGATIVE. RECOMMENDATION: Routine annual follow-up in 1 Year Additional Recommendation none A letter with findings and recommendations will be mailed to the patient. Reading Location: [place] [address]
== END | disposition home or self-care (01) ==
PROVIDERS: PCP Family Medicine; Referring Provider Family Medicine; Visit Provider Family Medicine
DX: Z12.31 Encounter for screening mammogram for malignant neoplasm of breast (principal)
CPT/HCPCS: 77063; 77067